=== PATIENT | female | born 1990 | race Caucasian/White ===

== ENCOUNTER 2020-08-16 20:29 | Emergency (ER) | payer SELFPAY ==
[~2020-08-16] VITALS: Ht 147.3 cm; Wt 61.2 kg
[2020-08-16 20:33] VITALS: BP 132/75
--- NOTE | 2020-08-16 20:39 | NUR ---
TO LOBBY FOLLOWING TRIAGE
--- NOTE | 2020-08-16 21:21 | NUR ---
PT AMBULATED TO BED 06.
--- NOTE | 2020-08-16 21:22 | NUR ---
PT AMBULATED TO RESTROOM WITH EVEN AND STEADY GAIT TO COLLECT URINE SAMPLE.
--- NOTE | 2020-08-16 21:25 | NUR ---
PT BIB SELF FOR C/O ABDOMINAL PAIN THAT IS "BURNING" X 5 DAYS, PT REPORTS HX OF STOMACH ULCERS AND SHE HAS NOT BEEN TAKING HER MEDICATIONS FOR THEM. PT REPORTS INGESTION OF ALCOHOL COULD BE CAUSING DISCOMFORT. PT + N/V, DENIES BLOOD IN EMESIS. PT REPORTS ABLE TO EAT SMALL MEALS AND TOLERATE LIQUIDS. LAST BM REPORTED TODAY. ABDOMEN IS SOFT, FLAT AND NONTENDER TO TOUCH. MED HX: STOMACH ULCERS, ANXIETY, INSOMNIA ALLERGIES: NKA
--- NOTE | 2020-08-16 21:37 | NUR ---
Dr. Abdi examining patient.
[2020-08-16] MEDS ORDERED: ONDANSETRON 4 MG ODT PO ONE (21:45)
--- NOTE | 2020-08-16 21:50 | NUR ---
LAB AT BEDSIDE.
[2020-08-16 22:01] LABS: BASOPHILS % (AUTO) 0.5 % (0.0-2.0); EOSINOPHILS # (AUTO) 0.1 K/uL (0-0.4); EOSINOPHILS % (AUTO) 1.2 % (0.0-4.0); HEMATOCRIT 37.7 % (36-48); HEMOGLOBIN 12.4 g/dL (12.0-16.0); LYMPHOCYTES # (AUTO) 3.1 K/uL (2.5-16.5); LYMPHOCYTES % (AUTO) 46.9 % (20.5-51.1); MEAN CORPUSCULAR HEMOGLOBIN 29 pg (27-31); MEAN CORPUSCULAR HGB CONC 33 g/dL (33-37); MEAN CORPUSCULAR VOLUME 87.3 fL (80-94); MONOCYTES # (AUTO) 0.4 K/uL (0.8-1.0); MONOCYTES % (AUTO) 5.6 % (1.7-9.3); NEUTROPHILS % (AUTO) 45.8 % (42.2-75.2); PLATELET COUNT (AUTO) 270 K/uL (140-450); RED BLOOD CELL COUNT(AUTO) 4.32 MIL/uL (4.20-5.40); WHITE BLOOD COUNT (AUTO) 6.6 K/uL (4.8-10.8)
[2020-08-16 22:36] LABS: ANION GAP 17.9 (8-16); CARBON DIOXIDE 25.7 mmol/L (21-32); CREATININE 0.7 mg/dL (0.6-1.3); POTASSIUM 3.6 mmol/L (3.5-5.1); TOTAL BILIRUBIN 0.3 mg/dL (0.0-1.0)
[2020-08-16 22:44] LABS: ALBUMIN 3.8 g/dL (3.4-5.0)
--- NOTE | 2020-08-16 22:55 | NUR ---
Patient appears to be resting comfortably in bed. Vital Signs within normal limits. Respirations even and unlabored. PT DENIES DISCOMFORT AT THIS TIME, STATING "I AM FEELING A LOT BETTER."
[2020-08-16] MEDS ORDERED: ONDA-24 SL (23:17)
[2020-08-16] MEDS ORDERED: MAG-27 PO (23:17)
[2020-08-16 23:53] VITALS: BP 98/54
--- NOTE | 2020-08-16 23:53 | NUR ---
Patient discharged with v/s stable. Written and verbal after care instructions given and explained. Patient alert, oriented and verbalized understanding of instructions. Ambulatory with steady gait. All questions addressed prior to discharge. ID band removed. Patient advised to follow up with PMD. Rx of MYLANTA AND ZOFRAN given. Patient educated on indication of medication including possible reaction and side effects. Opportunity to ask questions provided and answered.
== END 2020-08-16 23:53 | disposition home or self-care (01) ==
LOC: MED 20:29
DX: R11.2 Nausea with vomiting, unspecified (principal); R10.9 Unspecified abdominal pain; R63.0 Anorexia; F41.9 Anxiety disorder, unspecified; G47.00 Insomnia, unspecified; Z79.899 Other long term (current) drug therapy
CPT/HCPCS: 36415; 80053; 81002; 81025; 83690; 85025; 99283; Q0162